=== PATIENT | female | born 1935 | race Caucasian/White ===

== ENCOUNTER 2022-05-20 10:08 | Outpatient (CLI) | payer MEDICARE, BC, SELFPAY ==
[2022-05-20 11:23] LABS: Chloride* 103 mmol/L (96-114)
[2022-05-20 11:24] LABS: Albumin* 4.3 g/dL (3.3-5.0); Sodium* 137 mmol/L (135-149)
[2022-05-20 11:25] LABS: Potassium* 4.3 mmol/L (3.6-5.1)
[2022-05-20 11:27] LABS: Alanine Aminotransferase* 16 U/L (4-35); Alkaline Phosphatase* 89 U/L (40-150); Aspartate Amino Transferase* 21 U/L (12-35); Bilirubin Total* 0.4 mg/dL (0.1-1.5); Blood Urea Nitrogen* 26 mg/dL (7-30); Calcium* 9.9 mg/dL (8.4-10.6); Carbon Dioxide* 30 mmol/L (20-32); Cholesterol* 155 mg/dL (90-199); Creatinine* 1.3 mg/dL (0.5-1.5); Estimated Glomerular Filt Rate 40.05; Glucose* 166 mg/dL (60-115); Total Protein* 6.2 g/dL (6.0-8.3); Triglycerides* 112 mg/dL (40-149)
[2022-05-20 11:28] LABS: HDL Cholesterol* 64 mg/dL (>=50); LDL Cholesterol Calculated 69 mg/dL (<100)
[2022-05-20 11:44] LABS: Creatinine Urine 122.3 mg/dL
[2022-05-20 11:49] LABS: Microalbumin Creatinine Ratio 60 mg/g (0-30); Microalbumin Urine 8 mg/dL
== END 2022-05-20 10:09 | disposition home or self-care (01) ==
PROVIDERS: PCP Internal Medicine; Visit Provider Internal Medicine
DX: E03.9 Hypothyroidism, unspecified (principal); E11.22 Type 2 diabetes mellitus with diabetic chronic kidney disease; E11.9 Type 2 diabetes mellitus without complications; E78.5 Hyperlipidemia, unspecified; I10 Essential (primary) hypertension; N18.30 Chronic kidney disease, stage 3 unspecified; E11.42 Type 2 diabetes mellitus with diabetic polyneuropathy
CPT/HCPCS: 80053; 80061; 82043; 82570; 84443

== ENCOUNTER 2022-06-27 12:30 | Outpatient (RCR) | payer MEDICARE, BC, SELFPAY | END 2022-06-27 13:57 | disposition home or self-care (01) | PROVIDERS: PCP Internal Medicine; Visit Provider Internal Medicine | DX: R26.9 Unspecified abnormalities of gait and mobility (principal) | CPT/HCPCS: 97110; 97163 ==

== ENCOUNTER 2023-05-25 10:53 | Outpatient (CLI) | payer MEDICARE, BC, SELFPAY | END 2023-05-25 10:54 | disposition home or self-care (01) | LOC: NFLDREF 05-26 11:27 | PROVIDERS: PCP Internal Medicine; Referring Provider Internal Medicine; Visit Provider Internal Medicine | DX: E11.9 Type 2 diabetes mellitus without complications (principal); E03.9 Hypothyroidism, unspecified; R80.9 Proteinuria, unspecified; I10 Essential (primary) hypertension; N18.30 Chronic kidney disease, stage 3 unspecified; E78.5 Hyperlipidemia, unspecified | CPT/HCPCS: 80053; 80061; 82043; 82570; 84439; 84443 ==

== ENCOUNTER 2024-05-24 09:53 | Outpatient (CLI) | payer MEDICARE, BC, SELFPAY ==
--- OUTSIDE RECORDS SUMMARY | 2024-05-25 08:18 | XMS_ITS | Clinical Summary ---
Author Organization [facility] Address [place], [place] [address] Care Team Providers Care Anesthesia Director Name Role Phone Cynthia Macedo MD Primary Care Provider [phone] Allergies Active Allergy Reactions Criticality Noted Date Comments Carbamazepine *Unknown - Pt Doesn't Remember 11/02/2019 Ciprofloxacin *Unknown - Pt Doesn't Remember 11/02/2019 Sulfamethoxazole-Trimeth oprim *Unknown - Pt Doesn't Remember 11/02/2019 Latex Other - Describe In Comment Field 11/02/2019 From the odor, asthma flare Penicillins [place]ushing 11/02/2019 Sulfa (Sulfonamide Antibiotics) Flushing 11/02/2019 Trazodone *Unknown - Pt Doesn't Remember 11/02/2019 Medications Medication Sig Dispensed Refills Start Date End Date Status hydroCHLOROthiazide (HCTZ) 25 mg tablet Take 1 tablet by mouth once daily. 0 11/02/2019 Active cholecalciferol (VITAMIN D) 1,000 unit capsule Take 1 capsule by mouth once daily. 0 11/02/2019 Active glipiZIDE (GLUCOTROL) 10 mg tablet Take 1 tablet by mouth once daily before a meal. 0 11/02/2019 Active insulin NPH isoph U-100 human (HUMULIN N NPH U-100 INSULIN) 100 unit/mL susp injection Inject 20 Units subcutaneous before bedtime. 0 11/02/2019 Active topiramate (TOPAMAX) 100 mg tablet Take 1 tablet by mouth once daily. 0 11/02/2019 Active lisinopril (PRINIVIL; ZESTRIL) 20 mg tablet Take 1 tablet by mouth once daily. 0 11/02/2019 Active metFORMIN (GLUCOPHAGE) 500 mg tablet Take 1 tablet by mouth 2 times daily with meals. 0 11/02/2019 Active simvastatin (ZOCOR) 40 mg tablet Take 1 tablet by mouth at bedtime. 0 11/02/2019 Active potassium chloride (KLOR-CON 10; K-TAB) 10 mEq Controlled-Release tablet Take 1 tablet by mouth once daily with a meal. 0 11/02/2019 Active venlafaxine (EFFEXOR) 37.5 mg tablet Take 1 tablet by mouth every morning. 0 11/02/2019 Active levothyroxine (SYNTHROID) 100 mcg tablet Take 0.5 tablets by mouth before breakfast. 0 11/02/2019 Active traMADol (ULTRAM) 50 mg tablet Take 1 tablet by mouth every 6 hours if needed for Pain. 0 11/02/2019 Active Family History Medical History Relation Name Comments Cancer-colon Mother Relation Name Status Comments Mother Social History Tobacco Use Types Packs/Day Years Used Date Smoking Tobacco: Former Smokeless Tobacco: Never Tobacco Cessation:Counseling Given: Yes Comments:quit many years ago Sex and Gender Information Value Date Recorded Sex Assigned at Not on file Gender Identity Not on file Sexual Orientation Not on file Obstetrics History Last Filed Vital Signs Vital Sign Reading Time Taken Comments Blood Pressure 126/70 11/02/2019 11:28 AM TRAINING ADMINISTRATOR to wer Pulse 75 11/02/2019 11:28 AM TRAINING ADMINISTRATOR Temperature - - Respiratory Rate - - Oxygen Saturation 95% 11/02/2019 11:28 AM TRAINING ADMINISTRATOR Inhaled Oxygen Concentration - - Weight 62.1 kg (137 lb) 11/02/2019 11:28 AM TRAINING ADMINISTRATOR Height - - Body Mass Index - - Plan of Treatment Health Maintenance Due Date Last Done Comments Tdap 1946 Depression screening for age 12+ 1947 BMI (ht and wt on same day) for age 18+ 1953 Tetanus booster 1955 Zoster (shingles) series for age 50+ (1 of 2) 12/24/18 86 DEXA/DXA scan for age 65+ 2000 Medicare Wellness for age 65+ 2000 Pneumococcal series for age 65+ (1 of 1 - PCV) 001 COVID-19 vaccine series ( - 2022-24 season) 3 Influenza for age 65+ 07/17/2024 Care Teams Anesthesia Director Relationship Specialty Start Date End Date Cynthia Macedo MD [address] [place] [address] PCP - General Internal Medicine 11/02/19
== END 2024-05-24 09:54 | disposition home or self-care (01) ==
LOC: NFLDREF 05-25 08:15
PROVIDERS: PCP Internal Medicine; Referring Provider Internal Medicine; Visit Provider Internal Medicine
DX: E03.9 Hypothyroidism, unspecified (principal); I10 Essential (primary) hypertension; R78.5 Finding of other psychotropic drug in blood; E11.29 Type 2 diabetes mellitus with other diabetic kidney complication; R80.9 Proteinuria, unspecified; Z79.84 Long term (current) use of oral hypoglycemic drugs
CPT/HCPCS: 80053; 80061; 82043; 82570; 84439; 84443

== ENCOUNTER 2024-11-25 09:36 | Outpatient (CLI) | payer MEDICARE, BC, SELFPAY | END 2024-11-25 09:37 | disposition home or self-care (01) | LOC: NFLDREF 12-03 20:11 | PROVIDERS: PCP Internal Medicine; Referring Provider Internal Medicine; Visit Provider Internal Medicine | DX: E11.9 Type 2 diabetes mellitus without complications (principal); E03.9 Hypothyroidism, unspecified | CPT/HCPCS: 80053; 80061; 84439; 84443 ==

== ENCOUNTER 2025-05-24 11:13 | Outpatient (CLI) | payer MEDICARE, BC, SELFPAY | END 2025-05-24 11:14 | disposition home or self-care (01) | LOC: NFLDREF 05-28 06:45 | PROVIDERS: PCP Internal Medicine; Referring Provider Internal Medicine; Visit Provider Internal Medicine | DX: E11.22 Type 2 diabetes mellitus with diabetic chronic kidney disease (principal); N18.30 Chronic kidney disease, stage 3 unspecified | CPT/HCPCS: 82043; 82570 ==